=== PATIENT | female | born 1955 | race Caucasian/White ===

== ENCOUNTER → 2024-01-13 06:55 | Outpatient (REF) | payer OTHER, SELFPAY ==
[2024-01-13 08:30] LABS: % Basophils 0.6 % (0-2); % Eosinophils 1.8 % (0-6); % Lymphocytes 41.9 % (20.5-51.1); % Monocytes 7.9 % (1.7-9.3); % Neutrophils 47.8 % (42.2-75.2); Absolute Eosinophils 0.1 10^3/uL (0-0.7); Absolute Lymphocytes 2.1 10^3/uL (1.2-3.4); Absolute Monocytes 0.4 10^3/uL (0.1-0.6); Absolute Neutrophils 2.4 10^3/uL (1.4-6.5); Hematocrit 42.5 % (37.0-47.0); Hemoglobin 14.4 g/dL (12.0-16.0); Mean Corp Hgb Conc. 33.9 g/dL (33.0-37.0); Mean Corpuscular Hgb 30.2 pg (27.0-31.0); Mean Corpuscular Volume 89.1 fL (81.0-99.0); Mean Platelet Volume 11.3 fL (7.4-10.4); Nucleated Red Blood Cells % 0 %; Platelet Count 210 10^3/uL (130-400); Red Blood Cell Count 4.77 10^6/uL (4.20-5.40); Red Cell Dist. Width 12.3 % (11.5-14.5); White Blood Cell Count 5.1 10^3/uL (4.8-10.8)
[2024-01-13 09:05] LABS: ALT (SGPT) 19 U/L (0-35); AST (SGOT) 30 U/L (14-36); Albumin 4.6 g/dl (3.5-5.0); Alkaline Phosphatase 57 U/L (38-126); Blood Urea Nitrogen 16 mg/dl (7-17); Calcium 9.6 mg/dl (8.4-10.2); Carbon Dioxide 29 mmol/L (22-30); Chloride 103 mmol/L (98-107); Glucose 88 mg/dl (70-99); HDL Cholesterol 95 mg/dl; LDL Cholesterol, Calculated 119 mg/dl; Potassium 4.1 mmol/L (3.5-5.1); Sodium 144 mmol/L (135-145); Total Bilirubin 0.6 mg/dl (0.2-1.3); Total Cholesterol 225 mg/dl (50-199); Total Protein 7.3 g/dl (6.3-8.2); Triglyceride 57 mg/dl (10-149); Very Low Density Lipoprotein 11 mg/dl (0-30); eGFR > 60.00
[2024-01-13 09:28] LABS: TSH Reflex To Free T4 7.62 uIU/ml (0.47-4.68)
[2024-01-14 15:05] LABS: Intact PTH 65.8 pg/ml (13.6-85.8)
== END ==
LOC: WDC 06:55
PROVIDERS: ATTENDING PHYSICIAN Family Medicine
DX: Z00.00 Encounter for general adult medical examination without abnormal findings (principal); D35.1 Benign neoplasm of parathyroid gland; E34.9 Endocrine disorder, unspecified; Z12.31 Encounter for screening mammogram for malignant neoplasm of breast; G40.909 Epilepsy, unspecified, not intractable, without status epilepticus; E06.3 Autoimmune thyroiditis; Z82.3 Family history of stroke
CPT/HCPCS: 36415; 77063; 77067; 77080; 80053; 80061; 83970; 84439; 84443; 85025